=== PATIENT | female | born 1970 | race Caucasian/White ===

== ENCOUNTER 2023-06-21 10:37 | Outpatient (CLI) | payer OTHER, SELFPAY | END 2023-06-21 10:38 | disposition home or self-care (01) | PROVIDERS: PCP Physician Assistant Medical; Visit Provider Physician Assistant Medical | DX: Z00.00 Encounter for general adult medical examination without abnormal findings (principal); E78.5 Hyperlipidemia, unspecified; E55.9 Vitamin D deficiency, unspecified; R03.0 Elevated blood-pressure reading, without diagnosis of hypertension; Z13.0 Encounter for screening for diseases of the blood and blood-forming organs and certain disorders involving the immune mechanism; Z13.1 Encounter for screening for diabetes mellitus | CPT/HCPCS: 80053; 82306; 86703; 86803; 87086 ==

== ENCOUNTER 2023-07-03 13:55 | Outpatient (CLI) | payer OTHER, SELFPAY ==
--- NOTE | 2023-07-03 14:00 | CRLHL7_ITS ---
For Patients: As a result of the Cures Act, medical imaging exams and procedure reports are released immediately into your electronic medical record. You may view this report before your referring provider. If you have questions, please contact your health care provider. INDICATION: Lung cancer screening. History of smoking. High risk patient with greater than 35 pack-year smoking history. TECHNIQUE: Low-dose lung cancer screening non-contrast CT chest. Dose reduction techniques were used. COMPARISON: None. FINDINGS: NODULES: 3.1 millimeter nodule within the right upper lobe, 3/41. Calcified granuloma right lower lobe. LUNGS AND PLEURA: Mild emphysematous changes. No infiltrate or edema. No effusion or pneumothorax. MEDIASTINUM: Normal. CORONARY ARTERY CALCIFICATION: None. LIMITED UPPER ABDOMEN: Normal. MUSCULOSKELETAL: Normal. IMPRESSION: Negative for lung cancer screening purposes. LUNG-RADS CATEGORY: 2: Benign. RADIOLOGIST RECOMMENDATION: Continue annual screening with low-dose CT chest in 12 months. Please note that all CT scans at this facility use dose modulation, iterative reconstruction, and/or weight-based dosing when appropriate to reduce radiation dose to as low as reasonably achievable. Dictated by Kilo Alaniz MD @ 07/04/2023 9:11:50 AM (Electronically Signed)
== END 2023-07-03 13:56 | disposition home or self-care (01) ==
LOC: CT 13:56
PROVIDERS: PCP Physician Assistant Medical; Visit Provider Physician Assistant Medical
DX: Z12.2 Encounter for screening for malignant neoplasm of respiratory organs (principal)
CPT/HCPCS: 71271

== ENCOUNTER 2023-09-20 07:36 | Outpatient (CLI) | payer OTHER, SELFPAY ==
--- NOTE | 2023-09-20 08:15 | CRLHL7_ITS ---
For Patients: As a result of the Century Cures Act, medical imaging exams and procedure reports are released immediately into your electronic medical record. You may view this report before your referring provider. If you have questions, please contact your health care provider. BILATERAL SCREENING MAMMOGRAM WITH COMPUTER-AIDED DETECTION AND TOMOSYNTHESIS TECHNIQUE: CC and MLO views were obtained. These mammographic images have been obtained using full-field digital technique. These mammographic images were interpreted with the benefit of computer-aided detection. Breast Tomosynthesis was used in this interpretation. COMPARISON FILM: 10/13/19. FINDINGS: There are scattered areas of fibroglandular density IMPRESSION: There is no radiographic evidence for malignancy. ASSESSMENT: BI-RADS Category 1: Negative RECOMMENDATION: Routine screening mammogram in 1 year. A lay language report of this examination will be provided to the patient. Kilo Alaniz M.D. Diagnostic Radiologist [email or web address] SIMONE/[email or web address] Transcribed: 1:14 p.mary vallejo/Dictated by: Kilo Alaniz MD @ 09/20/2023 12:02:00 PM (Electronically Signed)
== END 2023-09-20 07:37 | disposition home or self-care (01) ==
LOC: MAMMO 07:36
PROVIDERS: PCP Physician Assistant Medical; Visit Provider Physician Assistant Medical
DX: Z12.31 Encounter for screening mammogram for malignant neoplasm of breast (principal); Z00.00 Encounter for general adult medical examination without abnormal findings; R03.0 Elevated blood-pressure reading, without diagnosis of hypertension; Z13.6 Encounter for screening for cardiovascular disorders; Z13.29 Encounter for screening for other suspected endocrine disorder
CPT/HCPCS: 77063; 77067; 80061; 84443

== ENCOUNTER 2024-05-14 08:25 | Outpatient (CLI) | payer OTHER, SELFPAY ==
--- OUTSIDE RECORDS SUMMARY | 2024-05-14 08:32 | XMS_ITS | Clinical Summary ---
Author Organization [facility] Address [address] [place] [address]. [place] [address] Care Team Providers Care Water Meter Mechanic Name Role Phone Clinic, [facility] Primary Care Provider Allergies Active Allergy Reactions Criticality Noted Date Comments Sulfa Antibiotics Rash Low 12/09/2011 rash Medications Medication Sig Dispensed Refills Start Date End Date Status NO ACTIVE MEDICATIONS Act eusebio oxyCODONE-acetaminoph en (PERCOCET) 5-325 MG per tablet Take 1-2 tablets by mouth every 4 hours as needed for pain 15 tablet 09/30/2017 Active ondansetron (ZOFRAN ODT) 4 MG ODT tab Take 1 tablet (4 mg) by mouth every 8 hours as needed for nausea 10 tablet 09/30/2017 Active Active Problems Problem Noted Date Diagnosed Date CARDIOVASCULAR SCREENING; LDL GOAL LESS THAN 160 12/09/2011 Immunizations Name Administration Dates Next Due TDAP Vaccine (Adacel) 04/07/2013 Social History Tobacco Use Types Packs/Day Years Used Date Smoking Tobacco: Never Smokeless Tobacco: Never Alcohol Use Standard Drinks/Week Comments No 0 (1 standard drink = 0.6 oz pur e alcohol) Adolescent Education Answer Date Record ed Getting School Help Needed Not on file 09/09 Sex and Gender Information Value Date Recorded Sex Assigned at Not on file Gender Identity Not on file Sexual Orientation Not on file Last Filed Vital Signs Vital Sign Reading Time Taken Comments Blood Pressure 120/86 08/23/2021 12:20 PM CDT Pulse 77 08/23/2021 11:45 AM CDT Temperature 36.1 ??C (96.9 ??F) 08/23/2021 8:12 AM CD T Respiratory Rate 16 08/23/2021 12:31 PM CDT Oxygen Saturation 100% 08/23/2021 12:20 PM CDT Inhaled Oxygen Concentration - - Weight 78 kg (172 lb) 12/16/2011 2:36 PM DERMATOLOGY PHYSICIAN Height 160 cm (5' 3) 12/16/2011 2:36 PM DERMATOLOGY PHYSICIAN Body Mass Index 30.47 12/16/2011 2:36 PM DERMATOLOGY PHYSICIAN Plan of Treatment Health Maintenance Due Date Last Done Comments ADVANCE CARE PLANNING 1972 ANNUAL REVIEW OF HM ORDERS 1972 CT COLONOGRAPHY 1972 FIT 1972 FLEX SIG 1972 YEARLY PREVENTIVE VISIT 1972 sDNA (Cologuard) 1972 COLONOSCOPY 1982 COLORECTAL CANCER SCREENING 1982 HIV SCREENING 1987 HEPATITIS C SCREENING 1990 HEPATITIS B IMMUNIZATION (1 of 3 - 19+ 3-dose series) 1991 PAP 1993 LIPID 2012 MAMMO SCREENING 10/13/2021 10/13/2019 ZOSTER IMMUNIZATION (1 of 2) 2022 DTAP/TDAP/TD IMMUNIZATION (2 - Td or Tdap) 04/07/2023 04/07/2013, 06/08/2003 COVID-19 Vaccine (2 - season) 2023 02/25/2021 PHQ-2 (once per calendar year) 2023 INFLUENZA VACCINE (Season Ended) 2024 10/20/2019, 10/16/2013, 08/22/2012, Additional history exists GLUCOSE 08/23/2024 08/23/2021, 09/30/2017 HPV IMMUNIZATION Aged Out No longer e ligible based on patient's age to complete this topic IPV IMMUNIZATION Aged Out No longer e ligible based on patient's age to complete this topic MENINGITIS IMMUNIZATION Aged Out No l onger eligible based on patient's age to complete this topic Pneumococcal Vaccine: Pediatrics (0 to 5 Years) and At-Risk Patients (6 to 64 Years) Aged Out No longer eligible based on patient's age to complete this topic RSV MONOCLONAL ANTIBODY Aged Out No l onger eligible based on patient's age to complete this topic Procedures Procedure Name Priority Date/Time Associated Diagnosis Comments BASIC METABOLIC PANEL STAT 08/23/2021 10:01 AM CDT MA SCREENING BILATERAL W/ CHARLES Routine 10/13/2019 8:39 AM DERMATOLOGY PHYSICIAN Visit for screening mammogram from Last 3 Months or Most Recently Relevant to Health Maintenance Results * (ABNORMAL) Basic metabolic panel (08/23/2021 10:01 AM CDT) Sodium 139 133 - 144 mmol/L 08/23/2021 10:23 AM CDT LABORATORY Potassium 3.8 3.4 - 5.3 mmol/L 08/23/2021 10:23 AM CDT LABORATORY Chloride 109 94 - 109 mmol/L 08/23/2021 10:23 AM CDT LABORATORY Carbon Dioxide (CO2) 24 20 - 32 mmol/L 08/23/2021 10:23 AM CDT LABORATORY Anion Gap 6 3 - 14 mmol/L 08/23/2021 10:23 AM CDT LABORATORY Urea Nitrogen 9 7 - 30 mg/dL 08/23/2021 10:23 AM T LABORATORY Creatinine 0.97 0.52 - 1.04 mg/dL 08/23/2021 10:23 AM CDT LABORATORY Calcium 8.3(L) 8.5 - 10.1 mg/dL 08/23/2021 10:23 AM T LABORATORY Glucose 90 70 - 99 mg/dL 08/23/2021 10:23 AM T LABORATORY GFR Estimate 69 >60 mL/min/1.7 3m2 08/23/2021 10:23 AM T LABORATORY Comment:As of June 05, 2021, eGFR is calculated by the CKD-EPI creatinine equation, without race adjustment. eGFR can be influenced by muscle mass, exercise, and diet. The reported eGFR is an estimation only and is only applicable if the renal function is stable. Blood STRUCTURE OF RIGHT UPPER LIMB / Unknown Venipuncture / Unknown 08/23/2021 10:01 AM CDT 08/23/2021 10:06 AM CDT Ca Darby MD LAB - BLOOD ORDER ARY [facility] Acute Care Lab [address] [facility] Lab (1st floor, no room number) [place] [address], [facility] [place] [phone] * MA Screen Bilateral w/Charles (10/13/2019 8:39 AM DERMATOLOGY PHYSICIAN) Anatomical Region Laterality Modality Breast Bilateral Mammography Impressions 10/13/2019 8:52 AM DERMATOLOGY PHYSICIAN IMPRESSION: BI-RADS CATEGORY: 0 - Incomplete - Need Additional Imaging Evaluation and/or Prior Mammograms for Comparison. RECOMMENDED FOLLOW-UP: Ultrasound. BRENDA CHUN MD Narrative 10/13/2019 8:52 AM DERMATOLOGY PHYSICIAN SCREENING MAMMOGRAM, BILATERAL, DIGITAL w/CAD and TOMOSYNTHESIS, 10/13/2019 8:49 AM BREAST DENSITY: Heterogeneously dense. CLINICAL INFORMATION: Breast screening. ??Visit for screening mammogram, [facility]. ?? FINDINGS: Indeterminant density in the lower deep left breast at about 7-8:00, 14 cm from the nipple. There is some asymmetric parenchymal density in the lateral right breast at about 9:00, 10 cm from the nipple most likely related to the patient's reduction surgery. Procedure Note Brenda Chun MD - 10/13/2019 SCREENING MAMMOGRAM, BILATERAL, DIGITAL w/CAD and TOMOSYNTHESIS, 10/13/2019 8:49 AM BREAST DENSITY: Heterogeneously dense. CLINICAL INFORMATION: Breast screening. Visit for screening mammogram, [facility]. FINDINGS: Indeterminant density in the lower deep left breast at about 7-8:00, 14 cm from the nipple. There is some asymmetric parenchymal density in the lateral right breast at about 9:00, 10 cm from the nipple most likely related to the patient's reduction surgery. IMPRESSION: BI-RADS CATEGORY: 0 - Incomplete - Need Additional Imaging Evaluation and/or Prior Mammograms for Comparison. RECOMMENDED FOLLOW-UP: Ultrasound. BRENDA CHUN MD Barb Rizvi MD IMG MAMMOGRAPHY ORDE JEYSON from Last 3 Months or Most Recently Relevant to Health Maintenance Care Teams Water Meter Mechanic Relationship Specialty Start Date End Date Clinic, [facility] [address] [place] [address] PCP - General 08/23/21
--- OUTSIDE RECORDS SUMMARY | 2024-05-14 08:32 | XMS_ITS | Encounter Summary ---
Author Organization [facility] Address [address] [place] [address]. [place] [address] Care Team Providers Care Rn Urology Name Role Phone [facility] Primary Care Provider Encounter Details Date Type Department Care Team (Late st Contact Info) Description 08/23/2021 Documentation Only INTERFACED REPORT Unknown, Provider Social History Tobacco Use Types Packs/Day Years Used Date Smoking Tobacco: Never Smokeless Tobacco: Never Alcohol Use Standard Drinks/Week Comments No 0 (1 standard drink = 0.6 oz pur e alcohol) Sex and Gender Information Value Date Recorded Sex Assigned at Not on file Gender Identity Not on file Sexual Orientation Not on file COVID-19 Exposure Response Date Recorded In the last month, have you been in contact with someone who was confirmed or suspected to have Coronavirus / COVID-19? No / Unsure 08/23/2021 8:08 AM CDT documented as of this encounter Plan of Treatment Not on file documented as of this encounter Visit Diagnoses Not on filedocumented in this encounter Care Teams Rn Urology Relationship Specialty Start Date End Date [facility] [address] [place], [place] [id number] PCP - General 08/23/21 documented as of this encounter
--- OUTSIDE RECORDS SUMMARY | 2024-05-14 08:32 | XMS_ITS | Referral Summary ---
Author Organization [facility] Address [address] [place] [address]. [place] [address] Care Team Providers Care Cardiovascular Rn Name Role Phone Clinic, [facility] Primary Care Provider Allergies Active Allergy Reactions [...] 78 kg (172 lb) 12/16/2011 2:36 PM BUNDLING MACHINE OPERATOR Height 160 cm (5' 3) 12/16/2011 2:36 PM BUNDLING MACHINE OPERATOR Body Mass Index 30.47 12/16/2011 2:36 PM BUNDLING MACHINE OPERATOR Plan of Treatment Not on file Procedures Procedure Name Priority Date/Time Associated Diagnosis Comments BASIC METABOLIC PANEL STAT 08/23/2021 10:01 AM CDT MA SCREENING BILATERAL W/ CHARLES Routine 10/13/2019 8:39 AM BUNDLING MACHINE OPERATOR Visit for screening mammogram from Last 3 [...] 20 - 32 mmol/L 08/23/2021 10:23 AM [facility] Anion Gap 6 3 - 14 mmol/L 08/23/2021 10:23 AM CDT LABORATORY Urea Nitrogen 9 7 - 30 mg/dL 08/23/2021 10:23 AM CDT LABORATORY Creatinine 0.97 0.52 - 1.04 mg/dL 08/23/2021 10:23 AM CDT LABORATORY Calcium 8.3(L) 8.5 - 10.1 mg/dL 08/23/2021 10:23 AM CDT LABORATORY Glucose 90 70 - 99 mg/dL 08/23/2021 10:23 AM CDT LABORATORY GFR Estimate 69 >60 mL/min/1.7 3m2 08/23/2021 10:23 AM CDT LABORATORY Comment:As of June 05, 2021, eGFR [...] Darby MD LAB - BLOOD ORDER AR[facility] Lab [address] [facility] (1st floor, no room number) [place] [address], [facility] [phone] * MA Screen Bilateral w/Charles (10/13/2019 8:39 AM BUNDLING MACHINE OPERATOR) Anatomical Region Laterality Modality Breast Bilateral Mammography Impressions 10/13/2019 8:52 AM BUNDLING MACHINE OPERATOR IMPRESSION: BI-RADS CATEGORY: 0 - Incomplete - Need Additional Imaging Evaluation and/or Prior Mammograms for Comparison. RECOMMENDED FOLLOW-UP: Ultrasound. MEHRDAD CHUN MD Narrative 10/13/2019 8:52 AM BUNDLING MACHINE OPERATOR SCREENING MAMMOGRAM, BILATERAL, DIGITAL w/CAD and TOMOSYNTHESIS, [...] to the patient's reduction surgery. Procedure Note Mehrdad Chun MD - 10/13/2019 SCREENING MAMMOGRAM, BILATERAL, [...] Prior Mammograms for Comparison. RECOMMENDED FOLLOW-UP: Ultrasound. MEHRDAD CHUN MD Barb Rizvi MD IMG MAMMOGRAPHY KAREEM BENÍTEZ from Last 3 Months or Most Recently Relevant to Health Maintenance Care Teams Cardiovascular Rn Relationship Specialty Start Date End Date Clinic, [facility] [address] [place] [address] PCP - General 08/23/21
== END 2024-05-14 08:26 | disposition home or self-care (01) ==
PROVIDERS: PCP Physician Assistant Medical; Visit Provider Physician Assistant Medical
DX: I10 Essential (primary) hypertension (principal); Z13.29 Encounter for screening for other suspected endocrine disorder
CPT/HCPCS: 80053; 81003; 83036; 84443; 85027; 87086; 87186

== ENCOUNTER 2024-07-14 07:03 | Outpatient (CLI) | payer OTHER, SELFPAY ==
--- OUTSIDE RECORDS SUMMARY | 2024-07-14 07:05 | XMS_ITS | Clinical Summary ---
Author Organization [facility] Address [address] [place] [address]. [place] [address] Care Team Providers Care Boat Driver Name Role Phone Clinic, [facility] Primary Care Provider Allergies Active Allergy [...] needed for nausea 10 tablet 09/30/2017 Active predniSONE (DELTASONE) 20 MG tablet Take two tablets (= 40mg) each day for 5 (five) days 10 tablet 06/25/2024 Active cyclobenzaprine (FLEXERIL) 10 MG tablet Take 0.5-1 tablets (5-10 mg) by mouth 3 times daily as needed for muscle spasms 20 tablet 06/25/2024 Active Active Problems Problem Noted Date Diagnosed Date CARDIOVASCULAR SCREENING; LDL GOAL LESS THAN 160 12/09/2011 Encounters Date Type Department Care Team Description 06/25/2024 4:17 AM CDT - 06/25/2024 7:08 AM CDT Emergency [facility] [address] [place] [phone] Daryl Lombardo MD Acute right-sided low back pain with right-sided sciatica Discharge Disposition: Home or Self Care 06/25/2024 Travel from Last 3 Months Immunizations Name Administration Dates Next Due TDAP [...] Sign Reading Time Taken Comments Blood Pressure 130/77 06/25/2024 7:07 AM CDT Pulse 77 06/25/2024 7:07 AM CDT Temperature 36.2 ??C (97.2 ??F) 06/25/2024 3:57 AM CD T Respiratory Rate 20 06/25/2024 7:07 AM CDT Oxygen Saturation 98% 06/25/2024 7:07 AM CDT Inhaled Oxygen Concentration - - Weight 97.5 kg (215 lb) 06/25/2024 3:56 AM CDT Height 158.8 cm (5' 2.5) 06/25/2024 3:56 AM CDT Body Mass Index 38.7 06/25/2024 3:56 AM CDT Plan of Treatment Health Maintenance Due Date [...] or Tdap) 04/07/2023 04/07/2013, 06/08/2003 COVID-19 Vaccine ( season) 2023 02/25/2021 PHQ-2 (once per calendar year) 2023 INFLUENZA VACCINE (#1) 2024 9, 10/16/2013, 08/22/2012, Additional history exists GLUCOSE 08/23/2024 [...] Procedure Name Priority Date/Time Associated Diagnosis Comments URINE CULTURE STAT 06/25/2024 5:57 AM CDT ROUTINE UA WITH MICROSCOPIC REFLEX TO CULTURE STAT 06/25/2024 5:57 AM CDT BASIC METABOLIC PANEL STAT 08/23/2021 10:01 AM CDT MA SCREENING BILATERAL W/ CHARLES Routine 10/13/2019 8:39 AM TELEMARKETER Visit for screening mammogram from Last 3 Months or Most Recently Relevant to Health Maintenance Results * (ABNORMAL) UA with Microscopic reflex to Culture (06/25/2024 5:57 AM CDT) Color Urine Yellow Colorless, Straw, Light Yellow, Yellow 06/25/2024 6:16 AM CDT [facility] Appearance Urine Slightly Cloudy(A) Clear 06/25/2024 6:16 AM CDT [facility] Glucose Urine Negative Negative mg/dL 06/25/2024 6:16 AM CDT [facility] Bilirubin Urine Negative Negative 6:16 AM CDT [facility] Ketones Urine Negative Negative mg/dL 06/25/2024 6:16 AM CDT [facility] Specific [place] Urine 1.030 1.003 - 1.035 LILY 06/25/2024 6:16 AM CDT LABORATORY Blood Urine Large(A) Negative 06/25/2024 6:16 AM CDT LABORATORY pH Urine 5.5 5.0 - 7.0 06/25/2024 6:16 AM CDT [facility] Protein Albumin Urine 50(A) Negative mg/dL 06/25/2024 6:16 AM CDT [facility] Urobilinogen Urine Normal Normal, 2.0 mg/dL 06/25/2024 6:16 AM CDT LABORATORY Nitrite Urine Negative Negative 06/25/2024 6:16 AM CDT [facility] Leukocyte Esterase Urine Moderate(A) Negative 06/25/2024 6:16 AM CDT LABORATORY Mucus Urine Present(A) None Seen /LPF 06/25/2024 6:16 AM CDT LABORATORY RBC Urine >182(H) <=2 /HPF 06/25/2024 6:16 AM CDT LABORATORY WBC Urine 23(H) <=5 /HPF 06/25/2024 6:16 AM CDT LABORATORY Squamous Epithelials Urine 2(H) <=1 /HPF 06/25/2024 6:16 AM CDT LABORATORY Hyaline Casts Urine 2 <=2 /LPF 06/25/2024 6:16 AM CDT LABORATORY Urine MID-STREAM URINE SPECIMEN / Unknown Non-blood Collection / Unknown 06/25/2024 5:57 AM CDT 06/25/2024 6:05 AM CDT Narrative LABORATORY - 06/25/2024 6:16 AM CDT Urine Culture ordered based on laboratory criteria Daryl Lombardo MD LAB - URINE KAREEM BENÍTEZ LABORATORY [facility] Acute Care Lab [address] Lab (1st floor, no room number) [place] [address], [facility] * Urine Culture (06/25/2024 5:57 AM CDT) Culture <10,000 CFU/mL Mixture of Urogenital Nickie 06/26/2024 6:01 AM CDT [facility] Urine MID-STREAM URINE SPECIMEN / Unknown Non-blood Collection / Unknown 06/25/2024 5:57 AM CDT 06/25/2024 6:15 AM CDT Daryl Lombardo MD LAB - MICRO GENE RAL ORDERABLES [facility] Inf. Diseases Diag. Lab [address] [facility], [address] [place] [address] * (ABNORMAL) Basic metabolic panel (08/23/2021 10:01 AM CDT) Sodium 139 133 - 144 mmol/L 08/23/2021 10:23 AM CDT LABORATORY Potassium 3.8 3.4 - 5.3 mmol/L 08/23/2021 10:23 AM T LABORATORY Chloride 109 94 - 109 mmol/L 08/23/2021 10:23 AM CDT LABORATORY Carbon Dioxide (CO2) 24 20 - 32 mmol/L 08/23/2021 10:23 AM CDT LABORATORY Anion Gap 6 3 - 14 mmol/L 08/23/2021 10:23 AM CDT LABORATORY Urea Nitrogen 9 7 - 30 mg/dL 08/23/2021 10:23 AM CDT LABORATORY Creatinine 0.97 0.52 - 1.04 mg/dL 08/23/2021 10:23 AM T LABORATORY Calcium 8.3(L) 8.5 - 10.1 mg/dL [...] Darby MD LAB - BLOOD ORDER ARY [facility] Acute Care Lab [address] [facility] Lab (1st floor, no room number) [place] [address], [facility] [phone] * MA Screen Bilateral w/Charles (10/13/2019 8:39 AM TELEMARKETER) Anatomical Region Laterality Modality Breast Bilateral Mammography Impressions 10/13/2019 8:52 AM TELEMARKETER IMPRESSION: BI-RADS CATEGORY: 0 - Incomplete - Need Additional Imaging Evaluation and/or Prior Mammograms for Comparison. RECOMMENDED FOLLOW-UP: Ultrasound. BRENDA CHUN MD Narrative 10/13/2019 8:52 AM TELEMARKETER SCREENING MAMMOGRAM, BILATERAL, DIGITAL w/CAD and TOMOSYNTHESIS, [...] MD Barb Rizvi MD IMG MAMMOGRAPHY ORDE KIRALES from Last 3 Months or Most Recently Relevant to Health Maintenance Care Teams Boat Driver Relationship Specialty Start Date End Date Clinic, [facility] [address] [facility] [place] [address] PCP - General 08/23/21
--- OUTSIDE RECORDS SUMMARY | 2024-07-14 07:05 | XMS_ITS | Encounter Summary ---
Author Organization [facility] Address [address] [place] [address]. [place] [address] Care Team Providers Care Enrollment Advisor Name Role Phone [facility] Primary Care Provider Encounter Details Date Type [...] on filedocumented in this encounter Care Teams Enrollment Advisor Relationship Specialty Start Date End Date [facility] [address] [place], [place] [phone] PCP - General 08/23/21 documented as of this encounter
--- OUTSIDE RECORDS SUMMARY | 2024-07-14 07:05 | XMS_ITS | Referral Summary ---
Author Organization [place] Address [address] [place] [address]. [place] [address] Care Team Providers Care Lamination Builder Name Role Phone Clinic, [facility] Primary Care Provider Encounters Date Type Department Care Team Description 06/25/2024 Travel 06/25/2024 4:17 AM CDT - 06/25/2024 7:08 AM CDT Emergency [facility] Emergency Dept [address] [place] [phone] Daryl Lombardo MD Acute right-sided low back pain with right-sided sciatica Discharge Disposition: Home or Self Care from Last 3 Months Allergies Active Allergy Reactions Criticality Noted Date [...] 06/25/2024 3:56 AM CDT Plan of Treatment Not on file Procedures Procedure Name Priority Date/Time Associated Diagnosis Comments URINE CULTURE STAT 06/25/2024 5:57 AM CDT ROUTINE UA WITH MICROSCOPIC REFLEX TO CULTURE STAT 06/25/2024 5:57 AM CDT BASIC METABOLIC PANEL STAT 08/23/2021 10:01 AM CDT MA SCREENING BILATERAL W/ CHARLES Routine 10/13/2019 8:39 AM PREFORMS LAMINATOR Visit for screening mammogram from Last 3 [...] 06/25/2024 6:16 AM CDT [facility] Specific [place] Urine 1.030 1.003 - 1.035 LILY 06/25/2024 6:16 AM CDT [facility] Blood Urine Large(A) Negative 06/25/2024 6:16 AM CDT LABORATORY pH Urine 5.5 5.0 - 7.0 06/25/2024 6:16 AM CDT LABORATORY Protein Albumin Urine 50(A) Negative mg/dL 06/25/2024 6:16 AM CDT LABORATORY Urobilinogen Urine Normal Normal, 2.0 mg/dL 06/25/2024 6:16 AM CDT [facility] Nitrite Urine Negative Negative 06/25/2024 6:16 AM CDT LABORATORY Leukocyte Esterase Urine Moderate(A) Negative 06/25/2024 [...] AM CDT 06/25/2024 6:05 AM CDT Narrative [facility] - 06/25/2024 6:16 AM CDT Urine Culture ordered based on laboratory criteria Daryl Lombardo MD LAB - URINE ORDE JEYSON [facility] Acute Care Lab [address] Lab (1st floor, no room number) [place] [address] * Urine Culture (06/25/2024 5:57 AM CDT) Culture <10,000 CFU/mL Mixture of Urogenital Nickie 06/26/2024 6:01 AM CDT [facility] Urine MID-STREAM URINE SPECIMEN / Unknown Non-blood Collection / Unknown 06/25/2024 5:57 AM CDT 06/25/2024 6:15 AM CDT Daryl Lombardo MD LAB - MICRO GENE RAL ORDERABLES [facility] Inf. Diseases Diag. Lab [address] [facility] [place] [address] * (ABNORMAL) Basic metabolic panel (08/23/2021 10:01 [...] Darby MD LAB - BLOOD ORDER [facility] LABORAT[facility] Acute [facility] Lab [address] [facility] ([facility] floor, no room number) [place] [address], [facility] [phone] * MA Screen Bilateral w/Charles (10/13/2019 8:39 AM PREFORMS LAMINATOR) Anatomical Region Laterality Modality Breast Bilateral Mammography Impressions 10/13/2019 8:52 AM PREFORMS LAMINATOR IMPRESSION: BI-RADS CATEGORY: 0 - Incomplete - Need Additional Imaging Evaluation and/or Prior Mammograms for Comparison. RECOMMENDED FOLLOW-UP: Ultrasound. BRENDA CHUN MD Narrative 10/13/2019 8:52 AM PREFORMS LAMINATOR SCREENING MAMMOGRAM, BILATERAL, DIGITAL w/CAD and TOMOSYNTHESIS, [...] Recently Relevant to Health Maintenance Care Teams Lamination Builder Relationship Specialty Start Date End Date Clinic, [facility] [address] [place] [address] PCP - General 08/23/21
--- OUTSIDE RECORDS SUMMARY | 2024-07-14 07:05 | XMS_ITS | Encounter Summary ---
Author Organization [place] Address [address] [place] [address]. [place] [address] Care Team Providers Care Sociology Instructor Name Role Phone [facility] Primary Care Provider Encounter Details Date Type Department Care Team (Latest Contact Info) Description 06/25/2024 Travel Social History Tobacco Use Types Packs/Day Years [...] on file Sexual Orientation Not on file documented as of this encounter Plan of Treatment Not on file documented as of this encounter Visit Diagnoses Not on filedocumented in this encounter Care Teams Sociology Instructor Relationship Specialty Start Date End Date [facility] [address] [place] [address] PCP - General 08/23/21 documented as of this encounter
--- OUTSIDE RECORDS SUMMARY | 2024-07-14 07:05 | XMS_ITS | Encounter Summary ---
Author Organization [place] Address [address] [facility] [place] [address] Care Team Providers Care Sap Bobj Developer Name Role Phone Clinic, [facility] Primary Care Provider Reason for Referral * Rehab Therapy Physical Therapy (Routine: Next available opening) - Pending Review Specialty Diagnoses / Procedures Referred By Contac t Referred To Contact Diagnoses Acute right-sided low back pain with right-sided sciatica Daryl Lombardo MD [facility] [address] [place] [address] Referral ID Status Reason Start Date Expiration Date V isits Requested Visits Authorized [id number] Pending Review 06/25/2024 06/25/2025 1 1 Question Answer Course of Action: Evaluation and Treatment Specialty Services: Per Associated Diagnosis Scheduling Instructions: [employer] will call you to coordinate your care as prescribed by your provider. If you don't hear from a industrial relations representative within 2 business days, please call . Comments Please be aware that coverage of these services is subject to the terms and limitations of your health insurance plan. Call member services at your health plan with any benefit or coverage questions. [employer] will call you to coordinate your care as prescribed by your provider. If you don't hear from a industrial relations representative within 2 business days, please call . Reason for Visit * Reason Comments Back Pain Encounter Details Date Type Department Care Team (Late st Contact Info) Description 06/25/2024 4:17 AM CDT - 06/25/2024 7:08 AM CDT Emergency [facility] Emergency Dept [address] [place] [address] Daryl Lombardo MD [facility] [address] [place], [place] [id number] Acute right-sided low back pain with right-sided sciatica Discharge Disposition: Home or Self Care Social History Tobacco Use Types Packs/Day Years [...] on file documented as of this encounter Last Filed Vital Signs Vital Sign Reading [...] Mass Index 38.7 06/25/2024 3:56 AM CDT documented in this encounter Discharge Instructions * Discharge Instructions* Daryl Lombardo MD - 06/25/2024 5:33 AM CDT Discharge Instructions Back Pain You were seen today for back pain. Back pain can have many causes, but most will get better withoutsurgery or other specific treatment. Sometimes there is a herniated (???slipped?? ) disc. We do notusually do MRI scans to look for these right away, since most herniated discs will get better on their own with time. Today, we did not find any evidence that your back pain was caused by a serious condition. However, sometimes symptoms develop over time and cannot be found during an emergency visit, so it is very important that you follow up with your primary provider. Generally, every Emergency Department visit should have a follow-up clinic visit with either a primary or a specialty clinic/provider. Please follow-up as instructed by your emergency provider today. Return to the Emergency Department if: You develop a fever with your back pain. You have weakness or change in sensation in one or both legs. You lose control of your bowels or bladder, or cannot empty your bladder (cannot pee). Your pain gets much worse. Follow-up with your provider: Unless your pain has completely gone away, please make an appointment with your provider within oneweek. Most of the routine care for back pain is available in a clinic and not the Emergency Department. You may need further management of your back pain, such as more pain medication, imaging such as an X-ray or MRI, or physical therapy. What can I do to help myself? Remain Active -- People are often afraid that they will hurt their back further or delay recovery by remaining active, but this is one of the best things you can do for your back. In fact, staying inbed for a long time to rest is not recommended. Studies have shown that people with low back pain recover faster when they remain active. Movement helps to bring blood flow to the muscles and relievemuscle spasms as well as preventing loss of muscle strength. Heat -- Using a heating pad can help with low back pain during the first few weeks. Do not sleep with a heating pad, as you can be burned. Pain medications - You may take a pain medication such as Tylenol?? (acetaminophen), Advil??, Motrin?? (ibuprofen) or Aleve?? (naproxen). If you were given a prescription for medicine here today, be sure to read all of the information (including the package insert) that comes with your prescription. This will include important information about the medicine, its side effects, and any warnings that you need to know about. The pharmacist who fills the prescription can provide more information and answer questions you may have about the medicine. If you have questions or concerns that the pharmacist cannot address, please call or return to the Emergency Department. Remember that you can always come back to the Emergency Department if you are not able to see your regular provider in the amount of time listed above, if you get any new symptoms, or if there is anything that worries you. documented in this encounter Medications at Time of Discharge Medication Sig Dispensed Refills Start Date End Date cyclobenzaprine (FLEXERIL) 10 MG tablet Take 0.5-1 tablets (5-10 mg) by mouth 3 times daily as needed for muscle spasms 20 tablet 06/25/2024 NO ACTIVE MEDICATIONS ondansetron (ZOFRAN ODT) 4 MG ODT tab Take 1 tablet (4 mg) by mouth every 8 hours as needed for nausea 10 tablet 09/30/2017 oxyCODONE-acetaminophen (PERCOCET) 5-325 MG per tablet Take 1-2 tablets by mouth every 4 hours as needed for pain 15 tablet 09/30/2017 predniSONE (DELTASONE) 20 MG tablet Take two tablets (= 40mg) each day for 5 (five) days 10 tablet 06/25/2024 documented as of this encounter ED Notes * Alondra Luis RN - 06/25/2024 3:54 AM CDT Patient complains of lower right back pain, radiating down right leg. Denies numbness or tingling. Denies any bowel or bladder problems. 7pm Aleve. 10pm liya. * Alondra Luis RN - 06/25/2024 3:52 AM CDT Patient arrives via EMS from home due to back pain. Pt lifted a lap top yesterday and continues to have pain at home. Prior to EMS no meds at home. * Daryl Lombardo MD - 06/25/2024 3:49 AM CDT Emergency Department Note History of Present Illness Chief Complaint Back Pain HPI Xiao Laboy is a 53 year old female who presents with back pain. The patient reports that yesterday she twisted in her car seat to grab a heavy bag which caused her to feel lower right back pain after lifting it. She explains that since then, any time she moves she feels this pain that takes her breath away. The patient notes that throughout the day her pain slowly worsened to the point where she experienced it while sitting still. She reports that her pain shoots down her right leg into her toes. The patient notes history of sciatica years ago during her . She also endorses some nausea associated with the pain. The patient denies abdominal pain, vomiting, urinary symptoms, saddle anesthesia, urinary/bowel incontinence, fever, and weakness in the legs. Xiao states that she took 2 Aleve and 2 Motrin for the pain but did not take any Tylenol. The patient denies history of backsurgery. Independent Historian None Review of External Notes None Past Medical History Medical History and Problem List Hyperlipidemia Medications Zestoretic Zofran Surgical History Arthroscopy, arthroplasty temporomandibular joint Physical Exam Patient Vitals for the past 24 hrs: BP Temp Temp src Pulse Resp SpO2 Height Weight 06/25/24 0357 (!) 160/97 97.2 ??F (36.2 ??C) Temporal 95 20 97 % -- -- 06/25/24 0356 -- -- -- -- -- -- 1.588 m (5' 2.5) 97.5 kg (215 lb) Physical Exam General: the patient is awake and interactive HEENT: Moist mucous membranes, conjunctiva normal Pulmonary: Normal respiratory effort Cardiovascular: Well perfused Abdomen: Soft, nontender, nondistended. No guarding/rebound. Musculoskeletal: Moving 4 extremities grossly wnl, no deformities; no CVA tenderness. No midline spine tenderness. Right low paralumbar tenderness. 5/5 BLE strength knee flexion/extension, ankle dorsiflexion/plantarflexion; SILT to BLE. DP/PT pulse 2+. 2+ patellar DTR. Neuro: Speech normal, no focal deficits Psych: Normal affect Diagnostics Lab Results Labs Ordered and Resulted from Time of ED Arrival to Time of ED Departure - No data to display Imaging No orders to display Independent Interpretation None ED Course Medications Administered Medications - No data to display Discussion of Management None ED Course ED Course as of 06/25/24 0533 SunJun 25, 2024 0522 I obtained history and examined the patient as noted above Optional/Additional Documentation None Medical Decision Making / Diagnosis CMS Diagnoses: None MIPS None MDM Xiao Laboy is a 53 year old female who presents to the emergency department for evaluation of right low back pain radiating to the right leg. Please see above for the details in HPI exam. There isno falls or trauma and I do not feel any radiographic imaging is indicated given my low suspicion for fracture. She is CMS intact to the lower extremities. There are no red flag signs/symptoms concerning for cauda equina, discitis, osteomyelitis, epidural abscess/hematoma or other emergent pathology warranting MRI imaging. Abdominal exam is otherwise benign. Doubt intra-abdominal catastrophe or vascular emergency causing referred pain. UA shows hematuria, patient reports that she is currently on her menstrual cycle. I have very low suspicion for kidney stone/ureterolithiasis given radicular nature of her pain. She is agreeable with deferring any imaging given her presentation and exam. Overall suspect low back pain with right-sided sciatica and muscle spasms. She had improvement of her symptoms recommend continued use of Tylenol/NSAIDs, muscle relaxants, lidocaine patch and close follow-up with her PCP next week to ensure resolution of her symptoms. She is comfortable with the plan. Discussed return precautions for the emergency department. All questions were answered prior to discharge. Disposition The patient was discharged. Diagnosis ICD-10-CM 1. Acute right-sided low back pain with right-sided sciatica M54.41 Discharge Medications New Prescriptions No medications on file Scribe Disclosure: Jonny Kim, am serving as a scribe at 5:29 AM on 06/25/2024 to document services personally performed by Daryl Lombardo MD based on my observations and the provider's statements to me. Daryl Lombardo MD 06/25/24 0832 documented in this encounter Plan of Treatment Scheduled Referrals Name Type Priority Associated Diagnoses Orde r Schedule Physical Therapy [employer] Referral Referral Routine: Next available opening Acute right-sided low back pain with right-sided sciatica Expected: 06/25/2024 (Approximate), Expires: 06/25/2025 documented as of this encounter Procedures Procedure Name Priority Date/Time Associated Diagnosis Comments ROUTINE UA WITH MICROSCOPIC REFLEX TO CULTURE STAT 06/25/2024 5:57 AM CDT URINE CULTURE STAT 06/25/2024 5:57 AM CDT documented in this encounter Results * Urine Culture (06/25/2024 5:57 AM CDT) Culture <10,000 CFU/mL Mixture of Urogenital Nickie 06/26/2024 6:01 AM CDT [facility] Urine MID-STREAM URINE SPECIMEN / Unknown Non-blood Collection / Unknown 06/25/2024 5:57 AM CDT 06/25/2024 6:15 AM CDT Daryl Lombardo MD LAB - MICRO GENE RAL ORDERABLES [facility] Inf. Diseases Diag. Lab [address] [facility], [address] [place] [phone] * (ABNORMAL) UA with Microscopic reflex to Culture (06/25/2024 5:57 AM CDT) Color Urine Yellow Colorless, Straw, Light Yellow, Yellow 06/25/2024 6:16 AM CDT LABORATORY Appearance Urine Slightly Cloudy(A) Clear 06/25/2024 6:16 AM CDT [facility] Glucose Urine Negative Negative mg/dL 06/25/2024 6:16 AM CDT [facility] Bilirubin Urine Negative Negative 6:16 AM CDT [facility] Ketones Urine Negative Negative mg/dL 06/25/2024 6:16 AM CDT [facility] Specific [place] Urine 1.030 1.003 - 1.035 LILY 06/25/2024 [...] Urine Moderate(A) Negative 06/25/2024 6:16 AM CDT [facility] Mucus Urine Present(A) None Seen /LPF 06/25/2024 6:16 AM CDT [facility] RBC Urine >182(H) <=2 /HPF 06/25/2024 6:16 AM CDT [facility] WBC Urine 23(H) <=5 /HPF 06/25/2024 6:16 AM CDT [facility] Squamous Epithelials Urine 2(H) <=1 /HPF 06/25/2024 6:16 AM CDT [facility] Hyaline Casts Urine 2 <=2 /LPF 06/25/2024 6:16 AM CDT [facility] Urine MID-STREAM URINE SPECIMEN / Unknown Non-blood Collection / Unknown 06/25/2024 5:57 AM CDT 06/25/2024 6:05 AM CDT Narrative LABORATORY - 06/25/2024 6:16 AM CDT Urine Culture ordered based on laboratory criteria Daryl Lombardo MD LAB - URINE KAREEM BENÍTEZ [facility] Organization Address City/State/ZIP Co de Phone Number LABORATORY [facility] [address] [facility] (1st floor, no room number) [place] [address] documented in this encounter Visit Diagnoses Diagnosis Acute right-sided low back pain with right-sided sciatica documented in this encounter Administered Medications Inactive Administered Medications - up to 3 most recent administrations Medication Order MAR Action Action Date Dose Rate Site HYDROcodone-acetaminophen (NORCO) 5-325 MG per tablet 2 tablet 2 tablet, Oral, ONCE, On Sun06/25/24 at 0535, For 1 dose, Maximum acetaminophen dose from all sources= 75 mg/kg/day not to exceed 4 grams $Given 06/25/2024 6:00 AM CDT 2 tablets documented in this encounter Active and Recently Administered Medications Times are shown in CDT. Scheduled Medication Order 06/23/2024 06/24/2024 06/25/2024 HYDROcodone-acetaminophen (NORCO) 5-325 MG per tablet 2 tablet (COMPLETED) 2 tablet, Oral, ONCE, On Sun06/25/24 at 0535, For 1 dose, Maximum acetaminophen dose from all sources= 75 mg/kg/day not to exceed 4 grams 0600 ($Given - Provi ayaka: Howard Sky RN) documented in this encounter Care Teams Sap Bobj Developer Relationship Specialty Start Date End Date [facility], [address] [address] PCP - General 08/23/21 documented as of this encounter
--- NOTE | 2024-07-14 07:15 | CRLHL7_ITS ---
For Patients: As a result of the Century Cures Act, medical imaging exams and procedure reports are released immediately into your electronic medical record. You may view this report before your referring provider. If you have questions, please contact your health care provider. Indication: Sciatica. Technique: Multiplanar, multisequence MRI of the lumbar spine was performed without intravenous contrast. Comparison: None relevant available. Findings: There are 5 lumbar type vertebral segments identified. The vertebral body heights are maintained without evidence of fracture. There is no discrete T1 hypointense marrow infiltrating process. The conus medullaris terminates at L1-2, normal. Cauda equina appears unremarkable. T12-L1: No spinal canal or neural foraminal stenosis. L1-2: No spinal canal or neural foraminal stenosis. L2-3: No spinal canal or neural foraminal stenosis. L3-4: No spinal canal or neural foraminal stenosis. L4-5: Disc degeneration. Minimal disc bulge without spinal canal narrowing. Mild right neural foraminal narrowing. Mild facet arthropathy. L5-S1: Disc degeneration. Minimal disc bulge without spinal canal narrowing. Right foraminal disc protrusion abuts the exiting right L5 nerve. There is STIR hyperintense signal involving the right L5-S1 facet, with reactive osseous and soft tissue edema. The visualized sacroiliac joints appear patent. Impression: 1. Active facet degeneration on the right at L5-S1, with reactive osseous and soft tissue edema. This may irritate the exiting right L5 nerve. 2. At L5-S1, right foraminal disc protrusion abuts the exiting right L5 nerve. 3. Minimal spondylosis at the remaining lumbar levels. Dictated by Cesar Parrish MD @ 07/14/2024 12:57:12 PM (Electronically Signed)
== END 2024-07-14 07:04 | disposition home or self-care (01) ==
LOC: MRI 07:03
PROVIDERS: PCP Physician Assistant Medical; Visit Provider Family Medicine
DX: M54.31 Sciatica, right side (principal); M51.27 Other intervertebral disc displacement, lumbosacral region; M47.896 Other spondylosis, lumbar region
CPT/HCPCS: 72148

== ENCOUNTER 2024-08-08 09:00 | Outpatient (RCR) | payer OTHER, SELFPAY | END 2024-10-21 10:07 | disposition home or self-care (01) | PROVIDERS: PCP Physician Assistant Medical; Visit Provider Family Medicine | DX: M54.30 Sciatica, unspecified side (principal); Z74.09 Other reduced mobility; M54.50 Low back pain, unspecified; M79.604 Pain in right leg; R26.2 Difficulty in walking, not elsewhere classified; M62.89 Other specified disorders of muscle; Z51.89 Encounter for other specified aftercare | CPT/HCPCS: 97012; 97110; 97161; 97530 ==

== ENCOUNTER 2024-09-04 09:32 | Outpatient (CLI) | payer OTHER, SELFPAY ==
--- OUTSIDE RECORDS SUMMARY | 2024-09-04 09:40 | XMS_ITS | Encounter Summary ---
Author Organization [place] Address [address] [facility] [place] [address] Care Team Providers Care Fur Blowing Machine Operator Name Role Phone Clinic, [facility] Primary Care Provider Reason for Referral * Rehab Therapy Physical Therapy (Routine: Next available opening) - Pending Review Specialty Diagnoses / Procedures Referred By Contac t Referred To Contact Diagnoses Acute right-sided low back pain with right-sided sciatica Daryl Lombardo MD [facility] [address] [place] [address] Referral ID Status Reason Start Date Expiration Date V isits Requested Visits Authorized [id number] Pending Review 06/25/2024 06/25/2025 1 1 Question Answer Course of Action: Evaluation and Treatment Specialty Services: Per Associated Diagnosis Scheduling Instructions: [employer] will call you to coordinate your care as prescribed by your provider. If you don't hear from a farm loan representative within 2 business days, please call . Comments Please be aware that coverage of these services is subject to the terms and limitations of your health insurance plan. Call member services at your health plan with any benefit or coverage questions. [employer] will call you to coordinate your care as prescribed by your provider. If you don't hear from a farm loan representative within 2 business days, please call . Reason for Visit * Reason Comments Back Pain Encounter Details Date Type Department Care Team (Late st Contact Info) Description 06/25/2024 4:17 AM CDT - 06/25/2024 7:08 AM CDT Emergency [facility] Emergency Dept [address] [place] [address] Daryl Lombardo MD [facility] [address] [place], [place] [phone] Acute right-sided low back pain with right-sided [...] needed for muscle spasms 20 tablet 06/25/2024 predniSONE (DELTASONE) 20 MG tablet Take two tablets (= 40mg) each day for 5 (five) days 10 tablet 06/25/2024 NO ACTIVE MEDICATIONS ondansetron (ZOFRAN ODT) 4 MG ODT tab Take 1 tablet (4 mg) by mouth every 8 hours as needed for nausea 10 tablet 09/30/2017 oxyCODONE-acetaminophen (PERCOCET) 5-325 MG per tablet Take 1-2 tablets by mouth every 4 hours as needed for pain 15 tablet 09/30/2017 documented as of this encounter ED Notes [...] Associated Diagnoses Orde r Schedule Physical Therapy Content Strategy Lead Referral Referral Routine: Next available opening Acute [...] MICRO GENE RAL ORDERABLES [facility] Inf. Diseases Diag. Lab [address] [facility], [address] [place] [phone] * (ABNORMAL) UA with Microscopic reflex to [...] 06/25/2024 6:16 AM CDT [facility] Specific [place] Urine 1.030 1.003 - 1.035 LILY 06/25/2024 [...] Lombardo MD LAB - URINE KAREEM BENÍTEZ [facility] Organization Address City/State/ZIP Co de Phone Number LABORATORY [facility] [address] [facility] ([facility]st [facility], no room number) [place] [address] documented in this encounter Visit Diagnoses Diagnosis [...] RN) documented in this encounter Care Teams Fur Blowing Machine Operator Relationship Specialty Start Date End Date [facility], [address] [address] PCP - General 08/23/21 documented as of this encounter
--- OUTSIDE RECORDS SUMMARY | 2024-09-04 09:40 | XMS_ITS | Encounter Summary ---
Author Organization [place] Address [address] [place] [address]. [place] [address] Care Team Providers Care Hand Plug Shaper Name Role Phone [facility] Primary Care Provider Encounter Details Date Type [...] on filedocumented in this encounter Care Teams Hand Plug Shaper Relationship Specialty Start Date End Date [facility] [address] [place] [address] PCP - General 08/23/21 documented as of this encounter
--- OUTSIDE RECORDS SUMMARY | 2024-09-04 09:40 | XMS_ITS | Referral Summary ---
Author Organization [place] Address [address] [place] [address]. [place] [address] Care Team Providers Care Laboratory Helper Name Role Phone Clinic, [facility] Primary Care Provider Encounters Date Type Department Care Team Description 06/25/2024 Travel 06/25/2024 4:17 AM CDT - 06/25/2024 7:08 AM CDT Emergency [facility] Emergency Dept [address] [place] [phone] Daryl Lombardo MD Acute right-sided low back [...] BILATERAL W/ CHARLES Routine 10/13/2019 8:39 AM DIRECTOR PARK Visit for screening mammogram from Last 3 [...] 06/25/2024 6:16 AM CDT [facility] Specific [place] Urine 1.030 1.003 - 1.035 LILY 06/25/2024 [...] LAB - URINE ORDE JEYSON [facility] LAB[facility] Acute Care Lab [address] Lab (1st floor, no room number) [place] [phone] * Urine Culture (06/25/2024 5:57 AM CDT) Culture <10,000 CFU/mL Mixture of Urogenital Nickie 06/26/2024 6:01 AM CDT [facility] Urine MID-STREAM URINE SPECIMEN / Unknown Non-blood Collection / Unknown 06/25/2024 5:57 AM CDT 06/25/2024 6:15 AM CDT Daryl Lombardo MD LAB - MICRO GENE RAL ORDERABLES [facility] Inf. Diseases Diag. Lab [address] [facility], [address] [place] [phone] * (ABNORMAL) Basic metabolic panel (08/23/2021 [...] MD LAB - BLOOD ORDER [facility] LABORATORY [facility] Lab [address] [facility] (1st floor, no room number) [place] [address], [facility] [phone] * MA Screen Bilateral w/Charles (10/13/2019 8:39 AM DIRECT[facility] PARK) Anatomical Region Laterality Modality Breast Bilateral Mammography Impressions 10/13/2019 8:52 AM [facility] IMPRESSION: BI-RADS CATEGORY: 0 - Incomplete - Need Additional Imaging Evaluation and/or Prior Mammograms for Comparison. RECOMMENDED FOLLOW-UP: Ultrasound. BRENDA CHUN MD Narrative 10/13/2019 8:52 AM [facility] SCREENING MAMMOGRAM, BILATERAL, DIGITAL w/CAD and TOMOSYNTHESIS, [...] Recently Relevant to Health Maintenance Care Teams Laboratory Helper Relationship Specialty Start Date End Date Clinic, [facility] [address] [place] [id number] PCP - General 08/23/21
--- OUTSIDE RECORDS SUMMARY | 2024-09-04 09:40 | XMS_ITS | Encounter Summary ---
Author Organization [place] Address [address] [place] [address]. [place] [address] Care Team Providers Care Molecular Geneticist Name Role Phone [facility] Primary Care Provider Encounter Details [...] on filedocumented in this encounter Care Teams Molecular Geneticist Relationship Specialty Start Date End Date [facility] [address] [place], [place] [phone] PCP - General 08/23/21 documented as of this encounter
--- OUTSIDE RECORDS SUMMARY | 2024-09-04 09:40 | XMS_ITS | Clinical Summary ---
Author Organization [facility] Address [address] [place] [address]. [place] [address] Care Team Providers Care Machine Grainer Name Role Phone Clinic, [facility] Primary Care Provider Allergies Active Allergy [...] CDT - 06/25/2024 7:08 AM CDT Emergency [facility] Emergency Dept [address] [place] [id number] Daryl Lombardo MD Acute right-sided low back [...] - Td or Tdap) 04/07/2023 04/07/2013, 06/08/2003 PHQ-2 (once per calendar year) 2023 COVID-19 Vaccine (2 - season) 2024 02/25/2021 INFLUENZA VACCINE (#1) 2024 9, 10/16/2013, 08/22/2012, Additional history exists GLUCOSE 08/23/2024 08/23/2021, 09/30/2017 RSV VACCINE (1 - 1-dose 75+ series) 2047 HPV IMMUNIZATION Aged Out No longer e [...] BILATERAL W/ CHARLES Routine 10/13/2019 8:39 AM MANAGING CONSULTANT CLINICAL PROFESSOR Visit for screening mammogram from Last 3 [...] 06/25/2024 6:16 AM CDT [facility] Specific [place] Urine 1.030 1.003 - 1.035 LILY 06/25/2024 [...] MD LAB - URINE K[facility] Acute Care Lab [address] Lab (1st floor, no room number) [place] [id number] * Urine Culture (06/25/2024 5:57 AM CDT) Culture <10,000 CFU/mL Mixture of Urogenital Nickie 06/26/2024 6:01 AM CDT [facility] Urine MID-STREAM URINE SPECIMEN / Unknown Non-blood Collection / Unknown 06/25/2024 5:57 AM CDT 06/25/2024 6:15 AM CDT Daryl Lombardo MD LAB - MICRO GENE RAL ORDERABLES [facility] [place] [facility] Inf. Diseases Diag. Lab [address] [facility], [address] [place] [address] * (ABNORMAL) Basic metabolic panel (08/23/2021 10:01 AM CDT) Sodium 139 133 - 144 mmol/L 08/23/2021 10:23 AM CDT LABORATORY Potassium 3.8 3.4 - 5.3 mmol/L 08/23/2021 10:23 AM T LABORATORY Chloride 109 94 - 109 mmol/L 08/23/2021 10:23 AM T LABORATORY Carbon Dioxide (CO2) 24 20 - 32 mmol/L 08/23/2021 10:23 AM T LABORATORY Anion Gap 6 3 - 14 [...] Darby MD LAB - BLOOD ORDER ARY [facility] Acute Care Lab [address] Lab (1st floor, no room number) [place] [address], [facility] [phone] * MA Screen Bilateral w/Charles (10/13/2019 8:39 AM MANAGING CONSULTANT CLINICAL PROFESSOR) Anatomical Region Laterality Modality Breast Bilateral Mammography Impressions 10/13/2019 8:52 AM MANAGING CONSULTANT CLINICAL PROFESSOR IMPRESSION: BI-RADS CATEGORY: 0 - Incomplete - Need Additional Imaging Evaluation and/or Prior Mammograms for Comparison. RECOMMENDED FOLLOW-UP: Ultrasound. BRENDA CHUN MD Narrative 10/13/2019 8:52 AM MANAGING CONSULTANT CLINICAL PROFESSOR SCREENING MAMMOGRAM, BILATERAL, DIGITAL w/CAD and TOMOSYNTHESIS, [...] MD Barb Rizvi MD IMG MAMMOGRAPHY ORDE RABLES from Last 3 Months or Most Recently Relevant to Health Maintenance Care Teams Machine Grainer Relationship Specialty Start Date End Date Clinic, [facility] [address] [place] [id number] PCP - General 08/23/21
== END 2024-09-04 09:33 | disposition home or self-care (01) ==
PROVIDERS: PCP Physician Assistant Medical; Visit Provider Physician Assistant Medical
DX: Z00.00 Encounter for general adult medical examination without abnormal findings (principal); I10 Essential (primary) hypertension; E55.9 Vitamin D deficiency, unspecified; E78.5 Hyperlipidemia, unspecified; E66.9 Obesity, unspecified
CPT/HCPCS: 80061; 82306

== ENCOUNTER 2024-12-15 07:44 | Outpatient (CLI) | payer OTHER, SELFPAY ==
--- NOTE | 2024-12-15 08:15 | CRLHL7_ITS ---
For Patients: As a result of the Century Cures Act, medical imaging exams and procedure reports are released immediately into your electronic medical record. You may view this report before your referring provider. If you have questions, please contact your health care provider. BILATERAL SCREENING MAMMOGRAM WITH COMPUTER-AIDED DETECTION AND TOMOSYNTHESIS TECHNIQUE: CC and MLO views were obtained. These mammographic images have been obtained using full-field digital technique. These mammographic images were interpreted with the benefit of computer-aided detection. Breast Tomosynthesis was used in this interpretation. COMPARISON FILM: 09/20/23, 10/13/19. FINDINGS: Sebaceous cyst medial LEFT breast, unchanged. The breasts are almost entirely fatty. IMPRESSION: There is no radiographic evidence for malignancy. ASSESSMENT: BI-RADS Category 2: Benign RECOMMENDATION: Routine screening mammogram in 1 year. A lay language report of this examination will be provided to the patient. Kerwin Parker M.D. Diagnostic/Nuclear Medicine Radiologist [email or web address] AUBREY/juan SP/Dictated by: Kerwin Parker MD @ 12/17/2024 11:52:00 AM (Electronically Signed)
== END 2024-12-15 07:45 | disposition home or self-care (01) ==
LOC: MAMMO 07:45
PROVIDERS: PCP Physician Assistant Medical; Visit Provider Physician Assistant Medical
DX: Z12.31 Encounter for screening mammogram for malignant neoplasm of breast (principal); N60.82 Other benign mammary dysplasias of left breast
CPT/HCPCS: 77063; 77067